=== PATIENT | male | born 1980 | race Caucasian/White ===

== ENCOUNTER 2016-05-15 11:30 | Emergency (ER) | payer OTHER ==
[2016-05-15] MEDS ORDERED: LORazepam 0.5 MG TABLET PO STA (14:14)
[2016-05-15] MEDS ORDERED: LORazepam 0.5 MG TABLET ONE (14:19)
[2016-05-15] MEDS ORDERED: BENZTROPINE 2 MG TABLET PO STA (14:22)
== END 2016-05-15 15:54 | disposition home or self-care (01) ==
DX: G25.1 Drug-induced tremor (principal); T43.595A Adverse effect of other antipsychotics and neuroleptics, initial encounter
CPT/HCPCS: 36415; 80164; 99283; A9270